=== PATIENT | male | born 1970 | race Asian ===

== ENCOUNTER 2023-08-15 10:55 | Observation (INO) ==
[2023-08-15 11:19] LABS: ABS Basophils 0.1 10^3/uL (0.0-0.1); ABS Eosinophils 0.2 10^3/uL (0.0-0.5); ABS Lymphocytes 1.1 10^3/uL (1.0-4.8); ABS Monocytes 0.4 10^3/uL (0.0-1.1); ABS Neutrophils 2.6 10^3/uL (1.5-7.6); ABS Nucleated RBC 0.01 10^3/ul; Eosinophil % 4.2 %; Hematocrit 40.2 % (38-53); Hemoglobin 13.7 g/dL (13.2-16.3); Lymphocyte % 26.4 %; Mean Corpuscular Hemoglobin 28.7 pg (27-33); Mean Corpuscular Hgb Conc 34.2 g/dL (31-36); Nucleated Red Blood Cells % 0.1 %/100WBC (0.0-0.8); Platelet Count 243 10^3/uL (150-450); Red Blood Count 4.79 10^6/uL (4.06-5.63); Red Cell Distribution Width 13.6 % (12-17); White Blood Count 4.3 10^3/uL (3.6-10.2)
[2023-08-15 11:44] LABS: INR 1.01 (0.83-1.13)
[2023-08-15 11:50] LABS: High Sens Troponin Baseline 3 pg/mL (<20)
[2023-08-15 12:10] LABS: ALT 19 U/L (7-52); AST 32 U/L (13-39); Albumin 4.6 g/dL (3.2-5.2); Alkaline Phosphatase 67 U/L (35-149); Anion Gap 7 mmol/L (2-16); CO2 Carbon Dioxide 27 mmol/L (22-32); Calcium 8.9 mg/dL (8.6-10.3); Chloride 95 mmol/L (101-111); Globulin 2.3 g/dL (2-4); Glucose 91 mg/dL (70-100); Potassium 4.4 mmol/L (3.5-5.0); Sodium 129 mmol/L (135-145); Total Bilirubin 0.9 mg/dL (0.2-1.0); Total Protein 6.9 g/dL (6.4-8.9); eGFR CKD-EPI 106.5 (>60)
[2023-08-15 12:25] LABS: Blood Urea Nitrogen 10 mg/dL (6-24)
[2023-08-15 12:37] LABS: High Sensitivity Troponin 1 Hr < 3 pg/mL (<20)
[2023-08-15] MEDS ORDERED: Sulfur Hexaflouride MICROSPHR 25 MG VIAL IV ONE (15:46)
[2023-08-15] MEDS: NS 0.9% 1000 ml BAG 1,000 ML IV SCH (16:18)
[2023-08-15 18:54] LABS: % Iron Saturation 42 % (15-55); .Transferrin 212 mg/dL (203-362); Iron 124 ug/dL (50-212); Total Iron Binding Capacity 297 mcg/dL (250-450); Unsaturated Iron Binding 173 ug/dL
[2023-08-15 19:09] LABS: TSH Ultra Thyroid Stim Horm 1.67 mcIU/mL (0.34-5.60)
[2023-08-15 19:17] LABS: Ferritin 134.4 ng/mL (24-336)
[2023-08-15 19:20] LABS: Folate > 20.00 ng/mL (5.90-24.80)
[2023-08-15 19:22] LABS: Vitamin B12 244 pg/mL (180-914)
[2023-08-16 05:24] LABS: ABS Eosinophils 0.2 10^3/uL (0.0-0.5); ABS Lymphocytes 1.6 10^3/uL (1.0-4.8); ABS Monocytes 0.4 10^3/uL (0.0-1.1); ABS Neutrophils 2.3 10^3/uL (1.5-7.6); Eosinophil % 4.6 %; Hematocrit 39.3 % (38-53); Hemoglobin 13.5 g/dL (13.2-16.3); Lymphocyte % 35.1 %; Mean Corpuscular Hemoglobin 28.8 pg (27-33); Mean Corpuscular Hgb Conc 34.4 g/dL (31-36); Mean Corpuscular Volume 83.5 fL (80-97); Mean Platelet Volume 6.9 fL (7.5-11.2); Platelet Count 244 10^3/uL (150-450); Red Blood Count 4.71 10^6/uL (4.06-5.63); Red Cell Distribution Width 14.1 % (12-17); White Blood Count 4.6 10^3/uL (3.6-10.2)
[2023-08-16 06:04] LABS: Calcium 9.1 mg/dL (8.6-10.3); Creatinine, Serum 0.86 mg/dL (0.67-1.17); HDL Cholesterol 70.8 mg/dL; Potassium 4.1 mmol/L (3.5-5.0); eGFR CKD-EPI 104.2 (>60)
[2023-08-16] MEDS ORDERED: Regadenoson 0.4 MG/5 ML SYRINGE ONE (07:59)
[2023-08-16 17:40] VITALS: BP 138/98
== END 2023-08-16 18:53 | disposition home or self-care (01) ==
LOC: ED 10:55 → EDHOLD 10:55 → MEDTELE 17:34
PROVIDERS: ADMIT Internal Medicine; ATTEND Internal Medicine